=== PATIENT | female | born 1960 | race Caucasian/White ===

== ENCOUNTER 2018-06-22 11:24 | Emergency (ER) | payer OTHER ==
[~2018-06-22] VITALS: Ht 170.2 cm; Wt 70.3 kg
[2018-06-22] MEDS ORDERED: ALBUTEROL S2 MG/5 ML (12:28)
== END 2018-06-22 19:32 | disposition home or self-care (01) ==
LOC: ER 11:24
DX: S61.220A Laceration with foreign body of right index finger without damage to nail, initial encounter (principal); W45.8XXA Other foreign body or object entering through skin, initial encounter; Y93.89 Activity, other specified; Y92.89 Other specified places as the place of occurrence of the external cause; Y99.8 Other external cause status

== ENCOUNTER 2018-06-29 16:45 | Emergency (ER) | payer OTHER ==
[~2018-06-29] VITALS: Ht 162.6 cm; Wt 68.0 kg
[~2018-06-29 16:45] MED LIST: ALBUTEROL S2 MG/5 ML
== END 2018-06-29 19:48 | disposition home or self-care (01) ==
LOC: ER 16:45
DX: S93.491A Sprain of other ligament of right ankle, initial encounter (principal); Z48.02 Encounter for removal of sutures; X50.0XXA Overexertion from strenuous movement or load, initial encounter; Y93.01 Activity, walking, marching and hiking; Y92.488 Other paved roadways as the place of occurrence of the external cause; Y99.8 Other external cause status